=== PATIENT | male | born 1950 | race Caucasian/White ===

== ENCOUNTER 2019-12-17 21:15 | Observation (INO) ==
[2019-12-17] MEDS ORDERED: Ipratropium/Albuterol Neb 3 ML IH STA (21:30)
[2019-12-17] MEDS ORDERED: methylPREDNISolone 125 MG/2 ML VIAL IVP STA (21:30)
[2019-12-17 21:48] LABS: Hemoglobin 11.2 g/dL (12.9-16.9); Mean Corpuscular HGB Conc 31.1 g/dL (31.6-35.5); Mean Corpuscular Hemoglobin 28.2 pg (28.0-33.3); Mean Corpuscular Volume 90.7 fL (83.0-100.0); Mean Platelet Volume 9.8 fL (9.4-12.4); Platelet Count 275 K/mcL (140-400); Red Blood Count 3.97 M/mcL (4.19-5.50); Red Cell Distribution Width 12.9 % (11.5-14.5); White Blood Count 9.9 K/mcL (4.3-11.1)
[2019-12-17 22:05] LABS: INR 1.1; Prothrombin Time 12.1 Seconds (9.4-12.1)
[2019-12-17 22:06] LABS: Alanine Aminotransferase 9 Units/L (7-52); Albumin 4.3 g/dL (3.5-5.7); Albumin/Globulin Ratio 1.7 (1.1-2.2); Alkaline Phosphatase 71 Units/L (34-104); Aspartate Amino Transferase 19 Units/L (13-39); BUN/Creatinine Ratio 20 (6-26); Bilirubin,Direct 0.1 mg/dL (0.0-0.2); Bilirubin,Indirect 0.2 mg/dL (0.0-1.0); Bilirubin,Total 0.3 mg/dL (0.3-1.0); Blood Urea Nitrogen 9 mg/dL (8-23); Calcium 9.5 mg/dL (8.6-10.3); Carbon Dioxide 35 mEq/L (23-29); Chloride 86 mEq/L (98-107); Globulin 2.5 g/dL (2.4-3.5); Glucose 56 mg/dL (70-105); Osmolality,Calculated 258 (280-300); Sodium 126 mEq/L (136-145); Total Protein 6.8 g/dL (6.4-8.9); Troponin I < 0.03 ng/mL (< 0.04); eGFR For African Americans > 60 (> 60); eGFR For Non-African Americans > 60 (> 60)
[2019-12-17 22:08] LABS: Activated Partial Thrombo Time 33.8 Seconds (26.0-36.0)
[2019-12-17] MEDS ORDERED: Aspirin 81 MG TAB.CHEW PO ONE (22:46)
[2019-12-18] MEDS ORDERED: Naloxone 0.4 MG/ML INJ IVP PRN (01:54)
[2019-12-18 01:58] LABS: BUN/Creatinine Ratio 19 (6-26); Blood Urea Nitrogen 10 mg/dL (8-23); Calcium 9.3 mg/dL (8.6-10.3); Carbon Dioxide 37 mEq/L (23-29); Chloride 85 mEq/L (98-107); Glucose 194 mg/dL (70-105); Osmolality,Calculated 264 (280-300); Potassium 4.3 mEq/L (3.5-5.1); Sodium 125 mEq/L (136-145); eGFR For African Americans > 60 (> 60); eGFR For Non-African Americans > 60 (> 60)
[2019-12-18 05:02] LABS: Bilirubin,Urine Negative (Negative); Blood,Urine Negative (Negative); Clarity,Urine Clear (Clear); Color,Urine Yellow (Yellow); Glucose,Urine (UA) 250 mg/dL (Normal); Ketones,Urine Negative (Negative); Leukocyte Esterase,Urine Negative (Negative); Nitrite,Urine Negative (Negative); PH,Urine 7.5 pH Units (5.0-8.0); Protein,Urine Negative (Neg-Trace); Specific Gravity,Urine 1.018 (1.010-1.025); Urobilinogen,Urine Normal (Normal)
[2019-12-18 05:36] LABS: Hematocrit 33.8 % (37.5-50.1); Hemoglobin 10.8 g/dL (12.9-16.9); Mean Corpuscular Hemoglobin 28.7 pg (28.0-33.3); Mean Corpuscular Volume 89.9 fL (83.0-100.0); Mean Platelet Volume 9.6 fL (9.4-12.4); Platelet Count 257 K/mcL (140-400); Red Blood Count 3.76 M/mcL (4.19-5.50); Red Cell Distribution Width 12.7 % (11.5-14.5); White Blood Count 5.4 K/mcL (4.3-11.1)
[2019-12-18] MEDS ORDERED: Albuterol 2.5 MG/3 ML NEBULIZER IH PRN ×2 (05:52→10:11)
[2019-12-18 05:56] LABS: BUN/Creatinine Ratio 18 (6-26); Blood Urea Nitrogen 9 mg/dL (8-23); Calcium 9.2 mg/dL (8.6-10.3); Carbon Dioxide 36 mEq/L (23-29); Chloride 85 mEq/L (98-107); Chol/HDL Ratio 2.3 (0-4.9); Cholesterol 103 mg/dL (< 200); Glucose 227 mg/dL (70-105); HDL Cholesterol 45 mg/dL (40-59); LDL Cholesterol,Calculated 51 mg/dL (0-99); Osmolality,Calculated 266 (280-300); Potassium 4.7 mEq/L (3.5-5.1); Sodium 125 mEq/L (136-145); Triglycerides 33 mg/dL (< 150); eGFR For African Americans > 60 (> 60); eGFR For Non-African Americans > 60 (> 60)
[2019-12-18] MEDS: Ipratropium/Albuterol Neb 3 ML IH SCH ×4 (06:27→23:43)
[2019-12-18] MEDS ORDERED: Dextrose Gel 15 GM/37.5 ML TUBE PO PRN ×2 (07:38)
[2019-12-18] MEDS ORDERED: *HR* Dextrose 50 % in Water (Syg) 50 ML SYRINGE IVP PRN (07:38)
[2019-12-18] MEDS ORDERED: D5% in Water 1,000 ML IVC PRN (07:38)
[2019-12-18] MEDS: predniSONE 20 MG TABLET PO SCH (09:57)
[2019-12-18] MEDS ORDERED: Sennosides 8.6 MG TABLET PO PRN (10:11)
[2019-12-18] MEDS: Insulin LISPRO 300 UNITS/3 ML VIAL SQ SCH ×2 (12:52→17:33)
[2019-12-18 14:57] LABS: Estimated Average Glucose 131 mg/dl
[2019-12-18] MEDS: *HR* OxyCODONE/APAP 10/325 TABLET PO PRN (20:35)
[2019-12-18] MEDS ORDERED: Insulin LISPRO 300 UNITS/3 ML VIAL SQ SCH (21:00)
[2019-12-18] MEDS: Budesonide/Formoterol 160/4.5 1 PUFF INH IH SCH (23:43)
[2019-12-19 01:29] LABS: Hematocrit 34.2 % (37.5-50.1); Mean Corpuscular HGB Conc 32.2 g/dL (31.6-35.5); Mean Corpuscular Hemoglobin 28.5 pg (28.0-33.3); Mean Corpuscular Volume 88.6 fL (83.0-100.0); Mean Platelet Volume 9.8 fL (9.4-12.4); Platelet Count 280 K/mcL (140-400); Red Blood Count 3.86 M/mcL (4.19-5.50); Red Cell Distribution Width 12.6 % (11.5-14.5)
[2019-12-19 01:31] LABS: White Blood Count 8.9 K/mcL (4.3-11.1)
[2019-12-19 01:46] LABS: BUN/Creatinine Ratio 22 (6-26); Blood Urea Nitrogen 11 mg/dL (8-23); Calcium 9.4 mg/dL (8.6-10.3); Carbon Dioxide 33 mEq/L (23-29); Chloride 89 mEq/L (98-107); Glucose 183 mg/dL (70-105); Osmolality,Calculated 270 (280-300); Sodium 128 mEq/L (136-145); eGFR For African Americans > 60 (> 60); eGFR For Non-African Americans > 60 (> 60)
[2019-12-19] MEDS: Ipratropium/Albuterol Neb 3 ML IH SCH ×2 (04:00→09:31)
[2019-12-19 06:45] VITALS: BP 156/77
[2019-12-19] MEDS: Insulin LISPRO 300 UNITS/3 ML VIAL SQ SCH (07:25)
[2019-12-19] MEDS: *HR* OxyCODONE/APAP 10/325 TABLET PO PRN (08:56)
[2019-12-19] MEDS: predniSONE 20 MG TABLET PO SCH (08:57)
[2019-12-19] MEDS ORDERED: Loratadine 10 MG TABLET PO SCH (09:00)
[2019-12-19] MEDS ORDERED: NON-FORMULARY MEDICATION 1 EACH EACH (Tiotropium Bromide [Spiriva Respimat] 2 PUFF) IH SCH (09:00)
[2019-12-19] MEDS ORDERED: lisinopriL 5 MG TABLET PO SCH (09:00)
[2019-12-19] MEDS: Budesonide/Formoterol 160/4.5 1 PUFF INH IH SCH (09:31)
== END 2019-12-19 10:32 | disposition home or self-care (01) ==
LOC: 3BNU 21:15 → EMEROOARM 21:15 → 3BNU 23:21
PROVIDERS: ADMIT Family Medicine; ATTEND Family Medicine

== ENCOUNTER 2020-07-12 13:03 | Inpatient (IN) ==
[2020-07-12] MEDS ORDERED: cefTRIAXone 1,000 MG in Water for inj. (sterile) 10 ML IVP ONE (13:14)
[2020-07-12] MEDS ORDERED: Azithromycin 500 MG in 0.9 % Sodium Chloride 250 ML IVPB ONE (13:15)
[2020-07-12 13:50] LABS: Basophils # 0.1 K/mcL (0.0-0.2); Basophils % 0.4 %; Eosinophils % 0.1 %; Hemoglobin 11.9 g/dL (12.9-16.9); Immature Granulocytes % 0.4 % (0-4); Lymphocytes # 0.8 K/mcL (0.6-4.6); Lymphocytes % 6.5 %; Mean Corpuscular HGB Conc 30.5 g/dL (31.6-35.5); Mean Corpuscular Hemoglobin 27.6 pg (28.0-33.3); Mean Corpuscular Volume 90.5 fL (83.0-100.0); Mean Platelet Volume 10.4 fL (9.4-12.4); Monocytes # 1.2 K/mcL (0.0-1.3); Monocytes % 10.3 %; Neutrophils # 9.6 K/mcL (1.6-8.9); Platelet Count 396 K/mcL (140-400); Red Blood Count 4.31 M/mcL (4.19-5.50); Red Cell Distribution Width 12.2 % (11.5-14.5); Segmented Neutrophils % 82.3 %; White Blood Count 11.7 K/mcL (4.3-11.1)
[2020-07-12 14:16] LABS: BUN/Creatinine Ratio 25 (6-26); Blood Urea Nitrogen 13 mg/dL (8-23); Calcium 9.4 mg/dL (8.6-10.3); Carbon Dioxide 37 mEq/L (23-29); Chloride 88 mEq/L (98-107); Glucose 193 mg/dL (70-105); Osmolality,Calculated 277 (280-300); Potassium 4.1 mEq/L (3.5-5.1); Sodium 131 mEq/L (136-145); Troponin I 0.09 ng/mL (< 0.04); eGFR For African Americans > 60 (> 60); eGFR For Non-African Americans > 60 (> 60)
[2020-07-12 14:21] LABS: Amorphous Sediment,Urine Few per hpf (None-Few); Bilirubin,Urine Negative (Negative); Blood,Urine Negative (Negative); Clarity,Urine Turbid (Clear); Color,Urine Yellow (Yellow); Glucose,Urine (UA) >=1000 mg/dL (Normal); Ketones,Urine Trace mg/dL (Negative); Leukocyte Esterase,Urine Negative (Negative); Mucus,Urine Few per lpf (None-Few); Nitrite,Urine Negative (Negative); Protein,Urine 30 mg/dL (Neg-Trace); Specific Gravity,Urine > 1.030 (1.010-1.025); Squamous Epithelial Cell,Urine Few per hpf (None-Few); Urobilinogen,Urine Normal (Normal); WBC,Urine 15-30 per hpf (0-3)
[2020-07-12] MEDS ORDERED: Naloxone 0.4 MG/ML INJ IVP PRN (14:37)
[2020-07-12] MEDS ORDERED: Isovue-370 500 ML BOTTLE IVP ONE (14:47)
[2020-07-12] MEDS ORDERED: Albuterol 2.5 MG/3 ML NEBULIZER IH PRN (14:59)
[2020-07-12] MEDS ORDERED: Sennosides 8.6 MG TABLET PO PRN (14:59)
[2020-07-12] MEDS ORDERED: Aspirin 81 MG TAB.CHEW PO SCH (15:00)
[2020-07-12] MEDS ORDERED: NON-FORMULARY MEDICATION 1 EACH EACH (Lactose-Reduced Food [Ensure Plus] 1 BOTTLE) PO SCH (15:00)
[2020-07-12] MEDS ORDERED: D5% in Water 1,000 ML IVC PRN (15:03)
[2020-07-12] MEDS ORDERED: *HR* Dextrose 50 % in Water (Vial) 50 ML VIAL IVP PRN (15:03)
[2020-07-12] MEDS ORDERED: Dextrose Gel 15 GM/37.5 ML TUBE PO PRN ×2 (15:03)
[2020-07-12] MEDS ORDERED: Furosemide 20 MG/2 ML VIAL IVP ONE (15:08)
[2020-07-12 16:13] LABS: Adenovirus Not Detected (Not Detect); Bordetella Pertussis Not Detected (Not Detect); Chlamydophila pneumoniae Not Detected (Not Detect); Coronavirus 229E Not Detected (Not Detect); Coronavirus HKU1 Not Detected (Not Detect); Coronavirus NL63 Not Detected (Not Detect); Coronavirus OC43 Not Detected (Not Detect); Human Metapneumovirus Not Detected (Not Detect); Human Rhinovirus/Enterovirus Not Detected (Not Detect); Influenza A Subtype 2009 H1 Not Detected (Not Detect); Influenza B Not Detected (Not Detect); Mycoplasma pneumoniae Not Detected (Not Detect); Parainfluenza Virus 1 Not Detected (Not Detect); Parainfluenza Virus 2 Not Detected (Not Detect); Parainfluenza Virus 3 Not Detected (Not Detect); Parainfluenza Virus 4 Not Detected (Not Detect); Respiratory Syncytial Virus Not Detected (Not Detect); SARS-CoV-2 Not Detected (Not Detect)
[2020-07-12] MEDS: Ipratropium/Albuterol Neb 3 ML IH SCH ×3 (16:15→23:30)
[2020-07-12] MEDS: Insulin LISPRO 300 UNITS/3 ML VIAL SUBQ SCH ×2 (17:09→19:43)
[2020-07-12] MEDS: *HR* Heparin 5,000 UNIT/ML VIAL SQ SCH (18:19)
[2020-07-12] MEDS: Furosemide 20 MG/2 ML VIAL IVP SCH (19:43)
[2020-07-12] MEDS: Budesonide/Formoterol 160/4.5 1 PUFF INH IH SCH (19:58)
[2020-07-13] MEDS: *HR* OxyCODONE/APAP 10/325 TABLET PO PRN ×4 (01:48→21:43)
[2020-07-13 02:23] LABS: Basophils # 0.1 K/mcL (0.0-0.2); Basophils % 0.5 %; Eosinophils # 0.1 K/mcL (0.0-0.6); Eosinophils % 1.1 %; Hematocrit 38.4 % (37.5-50.1); Hemoglobin 11.7 g/dL (12.9-16.9); Immature Granulocytes % 0.4 % (0-4); Lymphocytes # 1.1 K/mcL (0.6-4.6); Lymphocytes % 11.6 %; Mean Corpuscular HGB Conc 30.5 g/dL (31.6-35.5); Mean Corpuscular Volume 91.9 fL (83.0-100.0); Mean Platelet Volume 10.3 fL (9.4-12.4); Monocytes # 1.3 K/mcL (0.0-1.3); Monocytes % 13.8 %; Platelet Count 357 K/mcL (140-400); Red Blood Count 4.18 M/mcL (4.19-5.50); Red Cell Distribution Width 12.3 % (11.5-14.5); Segmented Neutrophils % 72.6 %; White Blood Count 9.7 K/mcL (4.3-11.1)
[2020-07-13 02:50] LABS: BUN/Creatinine Ratio 16 (6-26); Blood Urea Nitrogen 10 mg/dL (8-23); Calcium 9.4 mg/dL (8.6-10.3); Carbon Dioxide 45 mEq/L (23-29); Chloride 83 mEq/L (98-107); Chol/HDL Ratio 3.8 (0-4.9); Cholesterol 136 mg/dL (< 200); Glucose 170 mg/dL (70-105); HDL Cholesterol 36 mg/dL (40-59); LDL Cholesterol,Calculated 87 mg/dL (< 100); Magnesium 1.1 mg/dL (1.6-2.6); Osmolality,Calculated 277 (280-300); Sodium 132 mEq/L (136-145); Triglycerides 66 mg/dL (< 150); eGFR For African Americans > 60 (> 60); eGFR For Non-African Americans > 60 (> 60)
[2020-07-13] MEDS: Ipratropium/Albuterol Neb 3 ML IH SCH ×6 (03:48→23:25)
[2020-07-13] MEDS: *HR* Heparin 5,000 UNIT/ML VIAL SQ SCH ×2 (05:28→16:29)
[2020-07-13] MEDS: Budesonide/Formoterol 160/4.5 1 PUFF INH IH SCH ×2 (07:42→23:24)
[2020-07-13] MEDS: Tiotropium 10 INH DOSE IH SCH (07:49)
[2020-07-13] MEDS: Furosemide 20 MG/2 ML VIAL IVP SCH (07:58)
[2020-07-13] MEDS: Aspirin 81 MG TAB.CHEW PO SCH (07:59)
[2020-07-13] MEDS: Loratadine 10 MG TABLET PO SCH (07:59)
[2020-07-13] MEDS: Insulin LISPRO 300 UNITS/3 ML VIAL SUBQ SCH ×4 (08:02→21:42)
[2020-07-13] MEDS: MethylPREDNISolone 40 MG/ML VIAL IVP SCH ×2 (08:52→16:29)
[2020-07-13] MEDS ORDERED: Azithromycin 500 MG in 0.9 % Sodium Chloride 250 ML IVPB SCH (09:00)
[2020-07-13] MEDS ORDERED: cefTRIAXone 1,000 MG in 0.9 % Sodium Chloride Mini Bag 100 ML IVPB SCH (09:00)
[2020-07-13] MEDS ORDERED: lisinopriL 5 MG TABLET PO SCH (09:00)
[2020-07-13] MEDS ORDERED: NON-FORMULARY MEDICATION 1 EACH EACH (Ipratropium/Albuterol Sulfate 1 PUFF) IH SCH (09:00)
[2020-07-13 09:49] LABS: Estimated Average Glucose 154 mg/dl
[2020-07-14] MEDS: MethylPREDNISolone 40 MG/ML VIAL IVP SCH ×3 (00:48→15:54)
[2020-07-14] MEDS ORDERED: Ondansetron 4 MG/2 ML VIAL IVP PRN (00:54)
[2020-07-14] MEDS: Ipratropium/Albuterol Neb 3 ML IH SCH ×6 (04:15→23:25)
[2020-07-14] MEDS: *HR* Heparin 5,000 UNIT/ML VIAL SQ SCH ×2 (05:03→15:54)
[2020-07-14] MEDS: *HR* OxyCODONE/APAP 10/325 TABLET PO PRN ×3 (05:03→22:03)
[2020-07-14 05:30] LABS: Basophils % 0.1 %; Hematocrit 35.6 % (37.5-50.1); Hemoglobin 10.5 g/dL (12.9-16.9); Immature Granulocytes % 0.4 % (0-4); Lymphocytes # 0.3 K/mcL (0.6-4.6); Lymphocytes % 2.5 %; Mean Corpuscular HGB Conc 29.5 g/dL (31.6-35.5); Mean Corpuscular Hemoglobin 27.1 pg (28.0-33.3); Mean Platelet Volume 10.4 fL (9.4-12.4); Monocytes # 0.4 K/mcL (0.0-1.3); Monocytes % 3.1 %; Neutrophils # 11.5 K/mcL (1.6-8.9); Platelet Count 396 K/mcL (140-400); Red Blood Count 3.87 M/mcL (4.19-5.50); Red Cell Distribution Width 12.6 % (11.5-14.5); Segmented Neutrophils % 93.9 %; White Blood Count 12.2 K/mcL (4.3-11.1)
[2020-07-14 05:53] LABS: BUN/Creatinine Ratio 38 (6-26); Blood Urea Nitrogen 24 mg/dL (8-23); Calcium 9.6 mg/dL (8.6-10.3); Carbon Dioxide 42 mEq/L (23-29); Chloride 84 mEq/L (98-107); Glucose 290 mg/dL (70-105); Osmolality,Calculated 285 (280-300); Potassium 5.8 mEq/L (3.5-5.1); Sodium 130 mEq/L (136-145); eGFR For African Americans > 60 (> 60); eGFR For Non-African Americans > 60 (> 60)
[2020-07-14] MEDS: Tiotropium 10 INH DOSE IH SCH (07:21)
[2020-07-14] MEDS: Budesonide/Formoterol 160/4.5 1 PUFF INH IH SCH ×2 (07:22→20:12)
[2020-07-14] MEDS: Loratadine 10 MG TABLET PO SCH (08:52)
[2020-07-14] MEDS: Aspirin 81 MG TAB.CHEW PO SCH (08:52)
[2020-07-14] MEDS: Insulin LISPRO 300 UNITS/3 ML VIAL SUBQ SCH ×4 (08:52→21:08)
[2020-07-14] MEDS ORDERED: Furosemide 40 MG TABLET PO SCH (09:00)
[2020-07-14 09:33] LABS: Magnesium 1.8 mg/dL (1.6-2.6)
[2020-07-14] MEDS ORDERED: 0.9 % Sodium Chloride 1,000 ML IVC SCH (10:45)
[2020-07-14] MEDS: levoFLOXacin 750 MG/150 ML 750 MG/150 ML BAG IVPB SCH (11:11)
[2020-07-14 12:07] LABS: ABG Base Excess 15 mEq/L (-2 to 3); ABG HCO3 43 mEq/L (21-27); ABG Oxygen Saturation 94 % (95-98); ABG PCO2 70 mmHg (35-45); ABG PO2 75 mmHg (85-104); ABG TCO2 45 mEq/L (20-26)
[2020-07-14] MEDS ORDERED: Melatonin 3 MG TABLET PO ONE (22:33)
[2020-07-15] MEDS: MethylPREDNISolone 40 MG/ML VIAL IVP SCH ×4 (00:56→23:07)
[2020-07-15 01:11] LABS: Basophils % 0.1 %; Hematocrit 32.6 % (37.5-50.1); Hemoglobin 9.8 g/dL (12.9-16.9); Immature Granulocytes % 0.5 % (0-4); Lymphocytes # 0.4 K/mcL (0.6-4.6); Mean Corpuscular HGB Conc 30.1 g/dL (31.6-35.5); Mean Corpuscular Hemoglobin 27.1 pg (28.0-33.3); Mean Corpuscular Volume 90.3 fL (83.0-100.0); Mean Platelet Volume 10.1 fL (9.4-12.4); Monocytes # 1.1 K/mcL (0.0-1.3); Monocytes % 5.8 %; Neutrophils # 17.6 K/mcL (1.6-8.9); Platelet Count 371 K/mcL (140-400); Red Blood Count 3.61 M/mcL (4.19-5.50); Red Cell Distribution Width 12.4 % (11.5-14.5); Segmented Neutrophils % 91.6 %
[2020-07-15 01:14] LABS: White Blood Count 19.2 K/mcL (4.3-11.1)
[2020-07-15 01:28] LABS: BUN/Creatinine Ratio 35 (6-26); Blood Urea Nitrogen 20 mg/dL (8-23); Carbon Dioxide 36 mEq/L (23-29); Chloride 82 mEq/L (98-107); Glucose 217 mg/dL (70-105); Osmolality,Calculated 267 (280-300); Sodium 124 mEq/L (136-145); eGFR For African Americans > 60 (> 60); eGFR For Non-African Americans > 60 (> 60)
[2020-07-15] MEDS: Ipratropium/Albuterol Neb 3 ML IH SCH ×5 (04:05→19:38)
[2020-07-15] MEDS: *HR* Heparin 5,000 UNIT/ML VIAL SQ SCH ×2 (05:24→17:09)
[2020-07-15] MEDS: *HR* OxyCODONE/APAP 10/325 TABLET PO PRN ×3 (05:24→23:08)
[2020-07-15] MEDS: Budesonide/Formoterol 160/4.5 1 PUFF INH IH SCH ×2 (07:18→19:39)
[2020-07-15] MEDS ORDERED: 0.9 % Sodium Chloride 500 ML IVC ONE (07:41)
[2020-07-15] MEDS: Tiotropium 10 INH DOSE IH SCH (07:46)
[2020-07-15] MEDS: levoFLOXacin 750 MG/150 ML 750 MG/150 ML BAG IVPB SCH (07:56)
[2020-07-15] MEDS: Aspirin 81 MG TAB.CHEW PO SCH (07:57)
[2020-07-15] MEDS: Insulin LISPRO 300 UNITS/3 ML VIAL SUBQ SCH ×4 (07:57→20:47)
[2020-07-15] MEDS: Loratadine 10 MG TABLET PO SCH (07:57)
[2020-07-15] MEDS ORDERED: 0.9 % Sodium Chloride 500 ML IVC SCH (11:00)
[2020-07-16] MEDS: Ipratropium/Albuterol Neb 3 ML IH SCH ×3 (03:27→07:44)
[2020-07-16] MEDS: *HR* OxyCODONE/APAP 10/325 TABLET PO PRN (05:20)
[2020-07-16] MEDS: *HR* Heparin 5,000 UNIT/ML VIAL SQ SCH (05:20)
[2020-07-16 07:09] VITALS: BP 143/69
[2020-07-16] MEDS: MethylPREDNISolone 40 MG/ML VIAL IVP SCH (07:29)
[2020-07-16] MEDS: Insulin LISPRO 300 UNITS/3 ML VIAL SUBQ SCH (07:30)
[2020-07-16] MEDS: Loratadine 10 MG TABLET PO SCH (07:30)
[2020-07-16] MEDS: Aspirin 81 MG TAB.CHEW PO SCH (07:30)
[2020-07-16] MEDS: levoFLOXacin 750 MG/150 ML 750 MG/150 ML BAG IVPB SCH (07:30)
[2020-07-16] MEDS: Budesonide/Formoterol 160/4.5 1 PUFF INH IH SCH (07:46)
[2020-07-16] MEDS: Tiotropium 10 INH DOSE IH SCH (07:46)
[2020-07-16 08:11] LABS: Basophils % 0.1 %; Hematocrit 34.9 % (37.5-50.1); Hemoglobin 10.4 g/dL (12.9-16.9); Immature Granulocytes % 0.9 % (0-4); Lymphocytes # 0.3 K/mcL (0.6-4.6); Lymphocytes % 2.3 %; Mean Corpuscular HGB Conc 29.8 g/dL (31.6-35.5); Mean Corpuscular Hemoglobin 27.3 pg (28.0-33.3); Mean Corpuscular Volume 91.6 fL (83.0-100.0); Mean Platelet Volume 10.2 fL (9.4-12.4); Monocytes # 0.7 K/mcL (0.0-1.3); Monocytes % 5.6 %; Neutrophils # 12.1 K/mcL (1.6-8.9); Platelet Count 401 K/mcL (140-400); Red Blood Count 3.81 M/mcL (4.19-5.50); Red Cell Distribution Width 12.7 % (11.5-14.5); Segmented Neutrophils % 91.1 %; White Blood Count 13.2 K/mcL (4.3-11.1)
[2020-07-16 08:26] LABS: BUN/Creatinine Ratio 32 (6-26); Blood Urea Nitrogen 19 mg/dL (8-23); Calcium 9.1 mg/dL (8.6-10.3); Carbon Dioxide 39 mEq/L (23-29); Chloride 85 mEq/L (98-107); Glucose 365 mg/dL (70-105); Osmolality,Calculated 287 (280-300); Potassium 5.3 mEq/L (3.5-5.1); Sodium 130 mEq/L (136-145); eGFR For African Americans > 60 (> 60); eGFR For Non-African Americans > 60 (> 60)
== END 2020-07-16 11:41 | disposition home or self-care (01) | DRG 190 ==
LOC: 2ANU 13:03 → EMEROOARM 13:03 → 2ANU 15:30
PROVIDERS: ADMIT Internal Medicine; ATTEND Internal Medicine